=== PATIENT | male | born 1970 | race Caucasian/White ===

== ENCOUNTER 2021-01-18 10:24 | Emergency (ER) | payer OTHER, SELFPAY ==
--- NOTE | ~2021-01-18 | CT_ITS ---
DATE: 01/18/2021 12:03 INDICATION: Headache TECHNIQUE: Computed tomography (CT) of the head was performed without intravenous contrast. The dose- length product was 605.33 mGy-cm. Automated exposure control and iterative reconstruction technique w ere employed. COMPARISON: No prior studies for comparison. FINDINGS: Normal brain parenchymal volume for age. Normal garcia-white differentiation. No acute intrac ranial hemorrhage, infarction, mass or mass effect. No ventriculomegaly or midline shift. Midline sagittal images demonstrate a normal corpus callosum, c raniovertebral junction and sella turcica. Basilar cisterns are patent. Paranasal sinuses and mastoids are pneumatized. No depressed skull fractures. IMPRESSION: 1. No acute intracranial abnormality. Reviewed, dictated and finalized at location B.
--- NOTE | ~2021-01-18 | CT_ITS ---
EXAMINATION: CT facial bones wo con DATE: 01/18/2021 12:03 INDICATION: Facial pain. Jaw pain. TECHNIQUE: Computed tomography (CT) of the maxillofacial bones was performed without intravenous cont rast. The dose-length product was 688.35 mGy-cm. Automated exposure control and iterative reconstruct ion technique were employed. COMPARISON: None FINDINGS: No acute fracture or traumatic malalignment. The nasal bones, zygomatic arches and pterygoi d plates intact. Temporomandibular joints are intact. No mandibular fracture. Orbits are intact witho ut blowout fracture. Paranasal sinuses are pneumatized. Mastoids are normal. There is mild spondylosi s of the visualized cervical spine. IMPRESSION: 1. No acute fracture. Reviewed, dictated and finalized at location B. IMPRESSION: 1. No acute fracture.
[2021-01-18 10:30] VITALS: BP 138/92; PULSE 84; RESP 17; TEMP 36.4; O2SAT 100
--- NOTE | 2021-01-18 11:44 | ED.HEATRA ---
HPI - Head Injury General Chief complaint: Head Injury Stated complaint: head injury Time Seen by Provider: 01/18/21 11:26 Source: patient Mode of arrival: ambulatory Limitations: no limitations History of Present Illness HPI Narrative: This is a 50 year old male that presents to the ER for a head injury yesterday. Reports he was taking apart some pipes. Reports the pressure because one of them to hit him in the face. Denies loss of consciousness. Reports since he has had headache, lightheadedness, and pain in the right side of his jaw. Reports a superficial laceration to the face. Reports he is up-to-date on tetanus. Denies fever, vision changes, vomiting, numbness, or weakness. Related Data Allergies Allergy/AdvReac Type Severity Reaction Status Date / Time No Known Allergies Allergy Mild Verified 01/25/11 05:42 Review of Systems Review of Systems: Narrative: CONSTITUTIONAL: Denies fever EYES: Denies visual changes GASTROINTESTINAL: Denies vomiting MUSCULOSKELETAL: Reports joint pain, and myalgia. NEUROLOGIC: Reports headache. Denies numbness, or weakness. All systems reviewed & are unremarkable except as noted in HPI and below PMFSH Past Medical History Medical History (Updated 01/18/21 @ 12:32 by Mary Wolfe PA-C) History of depression History of diabetes mellitus History of hyperlipidemia Social History Social History Gender identity (if verbalized by the patient): Male Exam Narrative: Exam Narrative: GENERAL: Well-appearing, well-nourished, and in no acute distress. HEAD: Normocephalic. Superficial laceration below the bottom lip EYES: PERRLA and EOMI. ENT: Nares clear, no rhinorrhea or epistaxis. Mucous membranes moist. Oropharynx without tonsillar hypertrophy exudate or other lesions. Bilateral TMs pearly garcia non-bulging NECK: Supple. No adenopathy or masses. No midline cervical spine tenderness CHEST: Clear to auscultation. No respiratory distress. No wheezes rales or rhonchi HEART: Regular rate and rhythm. No murmur heard. Normal peripheral pulses. EXTREMITIES: Normal range of motion. No edema. Strength equal in bilateral upper extremities (5/5) SKIN: Warm, dry, no rash. NEURO: No focal deficits. Alert and oriented x3. Cranial nerves II through XII grossly intact PSYCH: Normal mood and affect Course Vital Signs Vital signs: Vital Signs Temperature 97.5 F L 01/18/21 10:30 Pulse Rate 84 01/18/21 10:30 Respiratory Rate 17 01/18/21 10:30 Blood Pressure 138/92 H 01/18/21 10:30 Pulse Oximetry 100 01/18/21 10:30 Temperature 97.5 F L 01/18/21 10:30 Pulse Rate 84 01/18/21 10:30 Respiratory Rate 17 01/18/21 10:30 Blood Pressure 138/92 H 01/18/21 10:30 Pulse Oximetry 100 01/18/21 10:30 MDM - Head Injury MDM Narrative Medical decision making narrative: Patient presents the emergency department after head injury yesterday at work. Was hit in the face with a pipe that was under pressure. Did have a superficial laceration. Reports he is up-to-date on tetanus. His vitals are stable. He is neurologically intact. CT scan of the brain and facial bones are without acute findings. Patient was updated on case findings. He is stable and felt appropriate for further outpatient evaluation. He was given warnings to return to the ER Imaging Data Radiologist's impression: ITS Impressions Head CT 01/18/21 12:05 IMPRESSION: 1. No acute intracranial abnormality. Face CT 01/18/21 12:11 IMPRESSION: 1. No acute fracture. Critical Care Time Critical Care Time Critical Care Time: No Discharge Plan Discharge Clinical Impression: Closed head injury Qualifiers: Encounter type: initial encounter Qualified Code(s): S09.90XA - Unspecified injury of head, initial encounter Patient Disposition: Home, Self-Care Condition: Stable Instructions: Concussion (ED) Additional Instructions: Return to the emergency department if you expe
[2021-01-18] MEDS: ACETAMINOPHEN 500 MG TABLET 1000 MG PO (11:48)
[2021-01-18 12:39] VITALS: BP 147/99; PULSE 86; RESP 18; O2SAT 99
== END 2021-01-18 12:40 | disposition home or self-care (01) ==
PROVIDERS: Emergency Provider Emergency Medicine; PCP Internal Medicine
DX: S09.90XA Unspecified injury of head, initial encounter (principal); S01.511A Laceration without foreign body of lip, initial encounter; E11.9 Type 2 diabetes mellitus without complications; E78.5 Hyperlipidemia, unspecified; W37.8XXA Explosion and rupture of other pressurized tire, pipe or hose, initial encounter
CPT/HCPCS: 70450; 70486; 99284; A9270